=== PATIENT | male | born 2005 | race Caucasian/White ===

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

== ENCOUNTER 2024-01-20 20:49 | Emergency (ER) | payer OTHER ==
[~2024-01-20] VITALS: Ht 162.6 cm; Wt 77.1 kg
[~2024-01-20 20:49] MED LIST: ACET-10509 PO; IBUP-2213 PO
[2024-01-20 21:03] VITALS: BP 122/71; PULSE 114; RESP 16; TEMP 99.4; O2SAT 98
[2024-01-20] MEDS: NACL 0.9% 1,000 ML IV ONE (21:54)
[2024-01-20] MEDS ORDERED: KETOROLAC 30 MG/ML VIAL ONE (21:58)
[2024-01-20] MEDS ORDERED: LOPERAMIDE 2 MG CAP ONE (21:58)
[2024-01-20] MEDS ORDERED: FAMOTIDINE 20 MG/2 ML VIAL ONE (21:58)
[2024-01-20] MEDS: FAMOTIDINE 20 MG/2 ML VIAL IVP ONE (21:59)
[2024-01-20] MEDS: KETOROLAC 30 MG/ML VIAL IVP ONE (21:59)
[2024-01-20] MEDS: LOPERAMIDE 2 MG CAP PO ONE (21:59)
[2024-01-20 22:04] LABS: BASOPHILS % (AUTO) 0.1 % (0.0-2.0); EOSINOPHILS # (AUTO) 0.1 K/uL (0-0.4); EOSINOPHILS % (AUTO) 0.9 % (0.0-4.0); HEMATOCRIT 46.2 % (36-52); HEMOGLOBIN 15.6 g/dL (12.0-18.0); LYMPHOCYTES # (AUTO) 0.3 K/uL (2.0-11.5); LYMPHOCYTES % (AUTO) 2.2 % (20.5-51.1); MEAN CORPUSCULAR HEMOGLOBIN 30 pg (27-31); MEAN CORPUSCULAR HGB CONC 34 g/dL (33-37); MEAN CORPUSCULAR VOLUME 87.6 fL (80-94); MONOCYTES # (AUTO) 0.7 K/uL (0.8-1.0); MONOCYTES % (AUTO) 6.3 % (1.7-9.3); NEUTROPHILS # (AUTO) 10.7 K/uL (1.8-7.7); NEUTROPHILS % (AUTO) 90.5 % (42.2-75.2); PLATELET COUNT (AUTO) 333 K/uL (140-450); RED BLOOD CELL COUNT(AUTO) 5.27 MIL/uL (4.20-6.10); RED CELL DISTRIBUTION WIDTH 13.4 % (11.6-13.7); WHITE BLOOD COUNT (AUTO) 11.8 K/uL (4.5-11.0)
[2024-01-20 22:14] LABS: ANION GAP 16.2 (8-16); CALCIUM 9.6 mg/dL (8.5-10.1); CREATININE 1.1 mg/dL (0.6-1.3); POTASSIUM 4.2 mmol/L (3.5-5.1)
[2024-01-20 22:16] LABS: ALBUMIN 4.4 g/dL (3.4-5.0); BILIRUBIN,DIRECT 0.2 mg/dL (0.0-0.3); TOTAL BILIRUBIN 0.8 mg/dL (0.0-1.0); TOTAL PROTEIN, SERUM 8.5 g/dL (6.4-8.2)
[2024-01-20] MEDS ORDERED: ONDA-188 SL (22:26)
[2024-01-20] MEDS ORDERED: FAMO-347 PO (22:27)
[2024-01-20 22:33] VITALS: BP 122/71; PULSE 114; RESP 16; TEMP 98.2; O2SAT 98
== END 2024-01-20 22:33 | disposition home or self-care (01) ==
LOC: MED 20:49
DX: R11.10 Vomiting, unspecified (principal); R19.7 Diarrhea, unspecified; E03.9 Hypothyroidism, unspecified; Z79.899 Other long term (current) drug therapy
CPT/HCPCS: 36415; 80048; 80076; 85025; 96361; 96374; 96375; 99284; J1885; J3490; J7030